=== PATIENT | female | born 1950 | race Caucasian/White ===

== ENCOUNTER → 2016-07-07 | Outpatient (REF) | payer MEDICARE, MEDICAID ==
[~2016-07-07] MED LIST: ALEN70TA47 PO; BUPR-42 PO; FLUO40CA PO; FOLI1TAB6 PO; GBPN100C PO; HYDR-3702 PO; HYDR-3754 PO; MELO-255 PO; MELO7.5T PO; OMEP20CA12 PO; OXYC1TAB87 PO; SERT25TA PO
[2016-07-07 18:20] LABS: RBC,URINE 20-50 /HPF; URINE CENTRIFUGED VOLUME 12 mL
== END ==
LOC: LAB 15:54
PROVIDERS: ATTEND Nurse Practitioner Family
DX: R31.29 Other microscopic hematuria (principal); R35.1 Nocturia
CPT/HCPCS: 81015; 87088

== ENCOUNTER 2016-07-26 13:00 | Outpatient (RCR) | payer MEDICARE, MEDICAID | END 2016-08-05 12:00 | disposition home or self-care (01) | LOC: PT 13:00 | PROVIDERS: ATTEND Family Medicine | DX: H81.13 Benign paroxysmal vertigo, bilateral (principal); M70.88 Other soft tissue disorders related to use, overuse and pressure other site; Z72.3 Lack of physical exercise | CPT/HCPCS: 95992; 97035; 97110; 97140; 97161; G8978; G8979; G8990; G8991; G8992 ==

== ENCOUNTER → 2016-08-01 | Outpatient (CLI) | payer MEDICARE, MEDICAID | LOC: LAB 14:15 | PROVIDERS: ATTEND Urology | DX: Z85.51 Personal history of malignant neoplasm of bladder (principal) | CPT/HCPCS: 88112 ==

== ENCOUNTER 2016-08-19 09:57 | Emergency (ER) | payer MEDICARE, MEDICAID ==
[~2016-08-19] VITALS: Ht 167.6 cm; Wt 63.6 kg
[2016-08-19] MEDS ORDERED: SODIUM CHLORIDE 250 ML IV PRN (10:10)
[2016-08-19] MEDS ORDERED: ASPIRIN 81 MG CHEW (CHILDREN'S ASA) PO ONE (10:10)
[2016-08-19] MEDS ORDERED: SODIUM CHLORIDE FLUSH 10 ML SYR IV PRN (10:10)
[2016-08-19 10:21] LABS: BASOPHILS % (AUTO) 0 % (0-2); EOSINOPHILS # (AUTO) 0.2 10^3uL; EOSINOPHILS % (AUTO) 3 % (0-4); LYMPHOCYTES # (AUTO) 1.8 X10^3; MEAN CORPUSCULAR HEMOGLOBIN 29.4 PG (26.0-34.0); MEAN CORPUSCULAR HGB CONC 34.1 g/dL (31.0-37.0); MEAN CORPUSCULAR VOLUME 86 FL (80-100); MEAN PLATELET VOLUME 10.2 FL (6.0-9.5); MONOCYTES # (AUTO) 0.7 X10^3; MONOCYTES % (AUTO) 11 % (3-11); NEUTROPHILS % (AUTO) 59 % (51-67); PLATELET COUNT 236 10^3uL (150-450); WHITE BLOOD COUNT 6.79 10^3uL (4.0-11.0)
[2016-08-19 10:43] LABS: ALBUMIN 3.9 g/dL (3.4-5.0); ALKALINE PHOSPHATASE 81 U/L (38-126); ANION GAP 11.1 MEQ/L (3-15); BUN/CREATININE RATIO 31 (10-20); CALCULATED IONIZED CALCIUM 4.2 mg/dL (3.8-4.6); CREATINE KINASE 44 U/L (30-135); TOTAL PROTEIN 6.8 g/dL (6.4-8.5)
[2016-08-19] MEDS ORDERED: ONDANSETRON 2 MG/ML (Z0FRAN) 2 ML VIAL IV ONE (11:15)
[2016-08-19] MEDS ORDERED: HYDROmorphone 1 MG/ML (DILAUDID) SYRINGE IV ONE (11:15)
[2016-08-19] MEDS ORDERED: ONDANSETRON 2 MG/ML (Z0FRAN) 2 ML VIAL ONE (11:17)
[2016-08-19] MEDS ORDERED: HYDROmorphone 1 MG/ML (DILAUDID) SYRINGE ONE (11:18)
[2016-08-19] MEDS: SODIUM CHLORIDE FLUSH 3 ML SYR IV PRN ×3 (11:33→11:40)
[2016-08-19 12:26] VITALS: BP 109/80
== END 2016-08-19 12:24 | disposition home or self-care (01) ==
LOC: ED 09:58
DX: M94.0 Chondrocostal junction syndrome [Tietze] (principal); R42 Dizziness and giddiness; M81.0 Age-related osteoporosis without current pathological fracture; R55 Syncope and collapse
CPT/HCPCS: 36415; 71010; 80053; 82550; 82553; 83735; 83880; 84484; 85025; 85379; 85610; 85730; 86140; 93005; 96374; 96375; 99285; A9270; J1170; J2405; 93010

== ENCOUNTER → 2016-08-25 | Outpatient (CLI) | payer MEDICARE, MEDICAID | LOC: RAD 09:02 | PROVIDERS: ATTEND Orthopaedic Surgery | DX: M25.552 Pain in left hip (principal) | CPT/HCPCS: 73721 ==

== ENCOUNTER → 2016-09-22 | Outpatient (CLI) | payer MEDICARE, MEDICAID ==
--- NOTE | 2016-09-22 13:20 | Diagnostic Imaging Report ---
EXAMINATION: Magnetic resonance imaging of the left shoulder without contrast. DATE: September 22, 2016. COMPARISON: None. INDICATION: 66-year-old female, left shoulder pain. TECHNIQUE: Magnetic Resonance Imaging sequences were performed of the shoulder without contrast. FINDINGS: There are some motion limitations of the exam. ROTATOR CUFF, LIGAMENTS, TENDONS, AND MUSCLES: There is tendinopathy of infraspinatus. The supraspinatus, subscapularis, and teres minor tendons are intact. There is normal rotator cuff muscle bulk and signal. LONG HEAD OF BICEPS: The biceps labral attachment and long head of the biceps tendon is intact. The long head of the biceps tendon is normally positioned within the bicipital groove. GLENOHUMERAL JOINT: The humeral head is well positioned relative to the glenoid. There is no discretely identified labral tear. There is no paralabral cyst. There is generalized moderate glenohumeral cartilage thinning. There is a small glenohumeral joint effusion with low-level synovitis. There is fluid in the subscapularis recess which is a normal glenohumeral joint communication. There is a low signal intra-articular body in the subscapularis recess which measures 14 x 11 mm in size. ACROMIOCLAVICULAR JOINT: The acromioclavicular joint is normally aligned. The coracoclavicular and coracoacromial ligaments are intact. There are very mild acromioclavicular degenerative changes without undersurface osteophyte. BONE: The bones all have normal configuration. There is no acute fracture, bone contusion, or evidence of osteonecrosis. BURSAE AND SOFT TISSUES: There is a very small amount of fluid in the subacromial subdeltoid bursa which is likely within normal limits. The additional soft tissues are unremarkable. IMPRESSION: 1. Moderate glenohumeral osteoarthritis with small glenohumeral joint effusion and low-level synovitis. Fluid in the subscapularis recess which is a normal glenohumeral joint communication with intra-articular body in the subscapularis recess measuring 14 x 11 mm in size. 2. Tendinopathy of infraspinatus. Negative for rotator cuff tendon tear. 3. Very mild acromioclavicular degenerative changes without undersurface osteophyte. 4. No acute fracture, bone contusion, or evidence of osteonecrosis. Dictated by: Dictated on workstation # [id number]
== END ==
LOC: RAD 09:50
PROVIDERS: ATTEND Nurse Practitioner Family
DX: M25.512 Pain in left shoulder (principal); M19.012 Primary osteoarthritis, left shoulder
CPT/HCPCS: 73221